=== PATIENT | male | born 1970 | race Caucasian/White ===

== ENCOUNTER 2022-08-08 09:56 | Emergency (ER) | payer SELFPAY ==
--- NOTE | ~2022-08-08 | XR_ITS ---
EXAMINATION: XR HAND, LEFT CLINICAL INFORMATION: Laceration and partial amputation COMPARISON: None TECHNIQUE: PA, lateral, and oblique views of the left hand. FINDINGS: Soft tissue laceration involving the distal aspect of the second finger with displaced fracture through the second middle phalanx. A few adjacent punctate densities may represent bone pieces or foreign bodies. There is also soft tissue injury involving the tip of the third finger with fracture of the tuft of the third distal phalanx. Some subcutaneous emphysema is noted within the third finger. XR/XR hand LT min 3V IMPRESSION: Soft tissue injuries of the second and third fingers with fractures of the second middle phalanx and third distal phalangeal aniket.
[2022-08-08 09:57] VITALS: BP 164/103; PULSE 140; RESP 20; TEMP 36.8; O2SAT 94; BMI 24.1
[2022-08-08] MEDS: 0.9 % Sodium Chloride 1,000 ML 999 ML IVCONT (10:14)
[2022-08-08] MEDS: Lidocaine HCl 1 % MPF 30 ML VIAL SUBCUT (10:14)
--- NOTE | 2022-08-08 10:19 | MHC.EDTECH ---
@[id number] called [facility] transfer line. Gave patient demographics and a call back number to the individual on the line. Told them the provider was ALLIE Goodrich. They stated they would call back.
--- NOTE | 2022-08-08 10:38 | MHC.EDTECH ---
@[id number] [facility] transfer line calls back. They request to speak to ALLIE Goodrich. Kisha takes the call right away.
[2022-08-08 10:41] VITALS: RESP 20
[2022-08-08] MEDS: ondansetron HCL 4 MG/2 ML VIAL IVPUSH (10:41)
[2022-08-08] MEDS: Morphine Sulfate 4 MG/ML CARTRIDGE IVPUSH (10:41)
[2022-08-08 10:53] LABS: MANUAL DIFF FLAG NO
[2022-08-08 10:54] LABS: Basophils Percent Auto 0.5 % (0-2); Eosinophils Absolute Auto 0.2 X10*3/uL (0.0-0.4); Eosinophils Percent Auto 2.9 % (0-4); Hematocrit 39.6 % (42.0-52.0); Hemoglobin 13.8 g/dl (14.0-18.0); Imm Gran Abs Auto 0.01 X10*3/uL (0.00-0.03); Imm Gran Pct Auto 0.2 % (0.0-0.4); Lymphocytes Absolute Auto 1.9 X10*3/uL (1.2-4.9); Lymphocytes Percent Auto 34.4 % (20-40); Mean Corpuscular HGB Conc 34.8 g/dl (31.0-36.0); Mean Corpuscular Hemoglobin 30.3 pg (27.0-33.0); Mean Platelet Volume 8.4 fL (9.4-12.4); Monocytes Absolute Auto 0.5 X10*3/uL (0.1-1.2); Monocytes Percent Auto 8.2 % (2-11); Neutrophils Percent Auto 53.8 % (45-73); Platelet Count 186 X10*3/uL (160-400); Red Blood Count 4.55 X10*6/uL (4.60-5.80); Red Cell Distribution Width 12.9 % (11.0-16.0); White Blood Count 5.5 X10*3/uL (4.8-10.8)
[2022-08-08 11:00] LABS: INTERNATIONAL NORM RATIO 1.1 (0.9-1.1); Prothrombin Time 12.1 SEC (10.0-13.1)
[2022-08-08] MEDS: cefTRIAXone sodium 2 GM in 0.9 % Sodium Chloride 50 ML IV (11:09)
[2022-08-08 11:34] LABS: Alanine Aminotransferase 10 U/L (0-40); Albumin Level 3.8 g/dL (3.5-5.0); Alkaline Phosphatase 64 U/L (39-117); Anion Gap 14 (12-20); Aspartate Amino Transferase 18 U/L (5-37); Bilirubin Total 0.8 mg/dL (0.0-1.0); Blood Urea Nitrogen 8 mg/dL (9-16); Calcium 8.4 mg/dL (8.4-10.2); Carbon Dioxide 23 mmol/L (22-29); Chloride 108 mmol/L (96-108); Creatinine Clr Calc Pharmacy 112.8; Estimated Glomerular Filt Rate > 60; Glucose Random 102 mg/dL (60-115); Magnesium 1.7 mg/dL (1.6-2.6); Sodium 141 mmol/L (135-145); Total Protein 5.9 g/dL (6.5-8.0)
[2022-08-08 12:26] VITALS: BP 99/54; PULSE 79; RESP 15; O2SAT 97
--- NOTE | 2022-08-08 13:23 | PC.NURSE ---
pressure dressing applied per pa order. no bleeding noted through dressing at this time.
--- NOTE | 2022-08-08 13:33 | ED_ITS ---
HPI - Wound/Laceration General Chief Complaint: Wound/Laceration Stated Complaint: cut finger off Time Seen by Provider: 08/08/22 10:01 Source: patient Mode of arrival: ambulatory Limitations: no limitations History of Present Illness HPI narrative: 52yoM presenting to the ER with complaints of complete amputation of the left middle finger distal aspect and partial amputation to the left index finger that occurred prior to arrival while he was outside trying to snow blow. He reports that the inspector final assembly conveyor line got jammed and he tried to fix it and this is how he sustained his injuries. Reports he is up-to-date on tetanus received 3-4 years ago he is certain about this. He denies any other symptoms complaints concerns or injuries at this time. Onset (ago): minute(s) (Prior to arrival) Extremity Location: left: hand (Index and middle finger left hand) Place: home (Outdoor) Patient tetanus UTD: Yes Context: accidental Associated symptoms: pain Treatments prior to arrival: bandage Related Data Previous Rx's Medication Instructions Recorded acetaminophen 500 mg tablet 1,000 mg PO QID PRN fever or pain 08/08/22 (Tylenol Extra Strength) #14 tabs ondansetron HCl 4 mg tablet 4 mg PO Q8H #14 tabs 08/08/22 oxycodone 5 mg tablet 5 mg PO Q6H PRN pain #14 tabs 08/08/22 Allergies Allergy/AdvReac Type Severity Reaction Status Date / Time No Known Allergies Allergy Verified 08/08/22 10:01 Review of Systems Review of Systems: Constitutional : No Fever, No Chills, Cardiovascular : No Chest Pain, No SOB Respiratory : No Dyspnea Gastrointestinal : No abdominal pain Musculoskeletal : No Joint Swelling Skin : positive finger amputation to left middle finger and partial to left index finger, No Foreign bodies, No rash, No surrounding erythema Neuro : No Weakness, No Numbness/tingling Psych : No SI/HI/thoughts of self injury Yes all other systems are reviewed and are negative PMFSH Past Medical History Attestation statement: The following information was validated with the patient. Source: old records reviewed and nursing notes reviewed Social History Social History Smoked in Last 30 Days: Yes Advance Directives: No Advance Directives Information Provided: No Physical Exam Vital Signs: Vital Signs: Last Vital Signs Temp 98.3 F 08/08/22 09:57 Pulse 79 08/08/22 12:26 Resp 15 08/08/22 12:26 BP 99/54 L 08/08/22 12:26 Pulse Ox 97 08/08/22 12:26 O2 Del Method 08/08/22 12:26 BMI result Body Mass Index 24.1 vital signs have been reviewed as normal and appeared to be correct. Blood pressure 164/140 Heart rate 140 Respiration rate normal. Temperature normal. Oxygen saturation normal. Appearance: Alert. Oriented X3. No acute distress. Head: Normal external exam. Normocephalic. Atraumatic. Eyes: PERRLA. EOMI. Conjunctiva and sclera normal. Eyelids normal. ENT: Pharynx normal. Uvula midline. Moist mucous membranes. Neck: Normal inspection. Neck supple. FROM. CVS: Normal heart rate and rhythm. Respiratory: No respiratory distress. Painless inspiration. Skin: Skin warm and dry. Normal skin color. Normal skin turgor. No rashes/lesions noted. To the left hand index finger patient has partial amputation with exposed bone noted to the distal aspect. To left hand middle finger patient has DIP amputation. see images below. Otherwise no additional lacerations or injuries noted. Extremities: Patient has pain with range of motion of the 2nd and 3rd digits of the left hand otherwise all other extremities exhibit normal range of motion nontender. Neuro: Oriented X 3. No motor deficit. No sensory deficit. Reflexes normal. Normal steady gait. No focal neuro deficits noted. Vascular: + radial pulses b/l. Normal cap refill. No cyanosis noted to upper extremity nails Course Course Course Narrative: 52yoM presenting to the ER with complaints of complete amputation of the left middle finger distal aspect and partial amputation to the left index finger that occurred prior to arrival while he was outside trying to snow blow. He reports that the inspector final assembly conveyor line got jammed and he tried to fix it and this is how he sustained his injuries. Reports he is up-to-date on tetanus received 3-4 years ago. Labs obtained patient mild anemia with an H&H of 13.8/39.6. BUN 8. Total protein 5.9. Otherwise all other labs are within normal limits X-ray reveals soft tissue injuries of the 2nd and 3rd fingers with fractures of the 2nd middle phalanx and 3rd distal phalangeal tuft. Therefore I discussed this case with Dr. Allen at [facility] and he reported that ?patient does not meet finger revascularization criteria or transfer at this time?. Therefore I discussed this case with Dr. Bernal who reported that the patient wound can be clean and closed and splinted and Dr. Baker can not complete amputation on Wednesday or he would admit in attempt amputation himself although do so Dr. Baker being a hand surgeon patient was more comfortable with the suturing the finger in place and following up on Wednesday with Dr. Baker. Therefore patient now status post partial amputation repair with simple running stitch and 2 simple interrupted stitches to the left hand index finger. He did have some bleeding to the left middle finger ther efore three figure of 8 absorbable sutures were placed. Patient tolerated procedure well. No acute complications. Tetanus was up-to-date therefore does not need to be updated. Patient received IV Rocephin. He will be discharged with p.o. antibiotics Keflex along with Tylenol and oxycodone. I also placed Surgicel over the left middle finger. Along with finger splint with bulky dressings. No active bleeding after repairs were done and dressings. Therefore patient will be discharged with instructions to stay NPO after midnight on Wednesday08/09/2022 for possible surgery with Dr. Baker on Wednesday08/10/2022. And to return if any new or worsening symptoms. Patient understands agrees with t his plan. Brother also at bedside understand agrees with plan. Medications Administered Discontinued Medications Generic Name Dose Route Start Last Admin Trade Name Freq PRN Reason Stop Dose Admin Albuterol Sulfate 2 puff 08/08/22 10:46 08/08/22 11:48 Albuterol Sulfate 90 Mcg 8 Gm Inhaler INHALE 08/08/22 10:47 Not Given ONCE ONE Sodium Chloride 1,000 mls @ 999 mls/hr 08/08/22 10:15 08/08/22 11:20 Ns IVCONT 08/08/22 11:15 Infused .Q1H1M GURDEEP Infusion Ceftriaxone Sodium 2 gm/ 50 mls @ 100 mls/hr 08/08/22 10:37 08/08/22 11:38 Sodium Chloride IV 08/08/22 11:06 Infused ONCE ONE Infusion Lidocaine HCl 30 ml 08/08/22 10:01 08/08/22 10:14 Lidocaine Hcl 1 % Mpf 30 Ml Vial SUBCUT 08/08/22 10:02 30 ml ONCE ONE Administration Protocol Morphine Sulfate 4 mg 08/08/22 10:35 08/08/22 10:41 Morphine Sulfate 4 Mg/Ml Cartridge IVPUSH 08/08/22 10:36 4 mg ONCE ONE Administration Protocol Ondansetron HCl 4 mg 08/08/22 10:35 08/08/22 10:41 Ondansetron Hcl 4 Mg/2 Ml Vial IVPUSH 08/08/22 10:36 4 mg ONCE ONE Administration Medical Decision Making Admission/Observation Consideration of admission/observation: Escalation of care including admission /observation considered (We did consider admission although with discharge the patient he will follow-up with Dr. Baker on Wednesday for further evaluation treatment) Consult Healthcare Provider Management of the patient was discussed with: Account Underwriter (Dr. Bernal the general orthopedic surgeon and Daria Dobbins PA-C) Lab Data MDM Lab Attestation statement: I reviewed the patient's lab results. 08/08/22 10:49 08/08/22 10:49 Labs: Lab Results 08/08/22 08/08/22 08/08/22 Range/Units 10:49 10:49 10:49 WBC 5.5 (4.8-10.8) X10*3/uL RBC 4.55 L (4.60-5.80) X10*6/uL Hgb 13.8 L (14.0-18.0) g/dl Hct 39.6 L (42.0-52.0) % MCV 87.0 (80.0-98.0) fL MCH 30.3 (27.0-33.0) pg MCHC 34.8 (31.0-36.0) g/dl RDW 12.9 (11.0-16.0) % Plt Count 186 (160-400) X10*3/uL MPV 8.4 L (9.4-12.4) fL Immature Gran % (Auto) 0.2 (0.0-0.4) % Neut % (Auto) 53.8 (45-73) % Lymph % (Auto) 34.4 (20-40) % Foard % (Auto) 8.2 (2-11) % Eos % (Auto) 2.9 (0-4) % Baso % (Auto) 0.5 (0-2) % Lymph # (Auto) 1.9 (1.2-4.9) X10*3/uL Foard # (Auto) 0.5 (0.1-1.2) X10*3/uL Eos # (Auto) 0.2 (0.0-0.4) X10*3/uL Baso # (Auto) 0.0 (0.0-0.2) X10*3/uL Abs Immat Gran (auto) 0.01 (0.00-0.03) X10*3/uL Absolute Neuts (auto) 3.0 (2.0-8.3) x10*3/uL Absolute Nucleated RBC 0.000 (0.0-0.012) X10*3/uL Nucleated RBC % (auto) 0.0 (0.0-0.2) /100WBC PT 12.1 (10.0-13.1) SEC INR 1.1 (0.9-1.1) Sodium 141 (135-145) mmol/L Potassium 4.0 (3.3-5.1) mmol/L Chloride 108 (96-108) mmol/L Carbon Dioxide 23 (22-29) mmol/L Anion Gap 14 (12-20) BUN 8 L (9-16) mg/dL Creatinine 0.85 (0.5-1.4) mg/dL Estim Creat Clear Calc 112.8 Estimated GFR > 60 Random Glucose 102 (60-115) mg/dL Calcium 8.4 (8.4-10.2) mg/dL Magnesium 1.7 (1.6-2.6) mg/dL Total Bilirubin 0.8 (0.0-1.0) mg/dL AST 18 (5-37) U/L ALT 10 (0-40) U/L Alkaline Phosphatase 64 (39-117) U/L Total Protein 5.9 L (6.5-8.0) g/dL Albumin 3.8 (3.5-5.0) g/dL Independent Interpretation I performed an independent interpretation of an: Plain X-Ray (X-ray reviewed by myself and I am agreeable with radiologist report discussed with patient he u stephen results) Radiology Impression Discussion of test interpretation with radiology: I have reviewed the radiologist's reading. Radiologist Impression: EXAMINATION: XR HAND, LEFT CLINICAL INFORMATION: Laceration and partial amputation? COMPARISON: None? TECHNIQUE: PA, lateral, and oblique views of the left hand. FINDINGS: Soft tissue laceration involving the distal aspect of the second finger with displaced fracture through the second middle phalanx. A few adjacent punctate densities may represent bone pieces or foreign bodies. There is also soft tissue injury involving the tip of the third finger with fracture of the tuft of the third distal phalanx. Some subcutaneous emphysema is noted within the third finger.? XR/XR hand LT min 3V IMPRESSION: Soft tissue injuries of the second and third fingers with fractures of the second middle phalanx and third distal phalangeal aniket. Independent Historian Clinical information obtained from an independent historian. History obtained from or confirmed by: Other (Patient and brother) Prescription Management I considered prescription management with: Pain Medication and Antibiotic Patient was given pain medications and antibiotics due to open fracture Procedures Laceration Laceration 1: Site: hand (Index finger) Side (If applicable): left Description: irregular (Partial amputation) and contaminated Depth: involves muscle layer, involves tendon and [id number] Local Anesthetic: lidocaine 1% Amount of anesthesia used (mL): 15 Pre-repair: wound explored, irrigated extensively and wound margins revised Skin layer closed with: nylon Size (cm): 4-0 (two simple interrupted stitches and 1 running stitch placed) Technique: simple, interrupted and running Subcutaneous layer closed with: vicryl Laceration 2: Site: hand (Middle finger) Side (If applicable): left Description: other (DIP amputated) Depth: involves muscle layer, involves tendon and wlbnrdw-wdb-evchuyt Local Anesthetic: lidocaine 1% Amount of anesthesia used (mL): 15 Pre-repair: wound explored and irrigated extensively Size (cm): 4-0 and other (Absorbable sutures placed 3) Technique: simple, interrupted Critical Care Time Critical Care Time Critical Care Time: Yes Total Critical Care Time: 60 Attestation: I personally attest to this time spent taking care of the patient Discharge Plan Discharge Clinical Impression: Amputation of finger tip, Partial traumatic amputation of finger through phalanx Patient Disposition: Home, Self-Care Instructions: Finger Amputation (ED), Skin Avulsion (ED) Prescriptions: New acetaminophen [Tylenol Extra Strength] 500 mg tablet 1,000 mg PO QID PRN (Reason: fever or pain) Qty: 14 0RF oxycodone 5 mg tablet 5 mg PO Q6H PRN (Reason: pain) Qty: 14 0RF Rx Instructions: Partial Fill upon patient request. ondansetron HCl 4 mg tablet 4 mg PO Q8H Qty: 14 0RF Referrals: Catia Baker MD [Physician] - (You need to follow-up by Wednesday with Dr. Baker the hand surgeon. Please do not eat or drink after midnight tomorrow 08/09/2022 for possible hand surgery/amputation Wednesday08/10/2022) Interventions: ED Discharge Assessment Last Done: 08/08/22 14:05 Discharge Date/Time: 08/08/22 14:05
== END 2022-08-08 14:05 | disposition home or self-care (01) ==
PROVIDERS: Physician Assistant Medical; Emergency Provider Emergency Medicine
DX: S68.121A Partial traumatic metacarpophalangeal amputation of left index finger, initial encounter (principal); S68.113A Complete traumatic metacarpophalangeal amputation of left middle finger, initial encounter; S62.621B Displaced fracture of middle phalanx of left index finger, initial encounter for open fracture; S62.633B Displaced fracture of distal phalanx of left middle finger, initial encounter for open fracture; W31.89XA Contact with other specified machinery, initial encounter; Y93.29 Activity, other involving ice and snow; Y92.014 Private driveway to single-family (private) house as the place of occurrence of the external cause; Y99.9 Unspecified external cause status
CPT/HCPCS: 12041; 36415; 73130; 80053; 83735; 85025; 85610; 96361; 96365; 96375; 99284; J0696; J2270; J2405

== ENCOUNTER 2022-08-10 11:25 | Day surgery (SDC) | payer SELFPAY ==
[2022-08-10] VITALS (7 sets, daily range): BP systolic 150–175; BP diastolic 86–111; PULSE 73–88; RESP 16–18; TEMP 36.2–36.9; O2SAT 95–100; BMI 23.0; BMI 24.1
--- NOTE | 2022-08-10 13:29 | P.HPOP_ITS ---
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 On 08/08/2022 the patient got his left hand caught in his flue blower sustaining significant injuries to his left index and middle fingers. He was seen in the emergency department where the wound was washed out, the fracture reapproximated and the wounds sutured closed as they were able. It sounds like he received IV antibiotics in the emergency department but was not placed on oral antibiotics. He complains of some pain in the left index and middle fingers. He says his thumb ring and small fingers feel fine. He says he has some mild soreness in the metacarpal area of the hand and wrist but no significant discomfort. TOLU Social History Social History Patient Tobacco Use Status: Current everyday Tobacco user Tobacco use type: Cigarette Cigarette Packs Per Day: 0.5 Cigarettes Per Day: 10.0 Years Smoked: 20 Use of substances other than those prescribed or required for medical reasons: Yes Are you DNR?: No Advance Directives: No Advance Directives Information Provided: Yes Meds Allergies Allergy/AdvReac Type Severity Reaction Status Date / Time No Known Allergies Allergy Verified 08/08/22 10:01 Physical Exam Vital Signs: Vital Signs: Last Vital Signs Temp 98.2 F 08/10/22 13:08 Pulse 84 08/10/22 13:08 Resp 18 08/10/22 13:08 BP 151/96 H 08/10/22 13:08 Pulse Ox 95 08/10/22 13:08 O2 Del Method 08/10/22 13:08 BMI result Body Mass Index 24.1 Const: General: cooperative, healthy appearing and no acute distress Orientation/consciousness: oriented to person and oriented to place HEENT: Head: Yes normocephalic and Yes atraumatic Eyes: EOM: EOMs intact bilaterally Resp: Effort & Inspection: normal respiratory effort and able to speak in complete sentences Cardio: Jugular venous distension: no JVD Skin: General skin exam: turgor normal Rashes: no rashes Neuro: General: oriented to person and oriented to place Extrem: Other: Evaluation of left Upper Extremity: He has a distal phalanx level tip amputation of the left middle finger. Regarding his left index finger he has a circumferential laceration that is obliquely oriented with a laceration being more proximal dorsally and more distally volarly all at the middle phalanx level. He is already exhibiting some evidence of tip necrosis of at least the nail level and distally. He is beginning what appears to be mummification of the tip with blackening and loss of turgor. He says he has some but not normal sensation to the pad of the finger. No visible bleeding. Radiographs: Three views of the left hand reviewed by me today and show an amputation through the distal phalanx level of the left middle finger. He also has a transverse fracture through the middle phalanx of the left index finger with displacement. Psych: Appearance: grossly normal Affect: normal affect Attitude: cooperative Results Labs Labs: All other labs normal. Assessment and Plan (1) Finger amputation, traumatic: Status: Acute (2) Open fracture of middle phalanx of left index finger: Status: Acute Plan Assessment and plan: 1. Left middle finger distal phalanx level traumatic amputation and nail bed injury 2. Left index finger open middle phalanx level near amputation, with evidence of early necrosis distal to the laceration and fracture site Both of these injuries are status post injury with a flue blower Date of injury 08/08/2022 He was seen in the emergency department where his wounds were irrigated, and loosely closed as able. I educated the patient about these injuries. I am recommending revision amputation of the left middle finger tip injury. After a long discussion with the patient, I do not believe that it is likely that the left index finger tip is viable. We will again reassess in the operating room for any evidence of bleeding or other evidence that this finger might be viable. If it is, then week will attempt an open reduction internal fixation with K-wires at the request of the patient. However, if he does not appear to have any further evidence of I a bili of the digit when we are in the operating room, he understands and agrees that we will then proceed with a revision amputation of this left index finger at this time. The risks and benefits of operative treatment were discussed with the patient and the patient wishes to proceed with surgery. These risks include, but are not limited to risk of damage to blood vessels, nerves, tendons, infection, recurrence, incomplete relief of preoperative symptoms, persistent pain, possible need for further surgery and the risks associated with regional blocks and anesthesia. The plan is to take the patient to the operating room today for the following procedures: 1. Left middle finger revision amputation 2. Left index finger revision amputation versus open reduction internal fixation 3. I and D of open fractures of both the left middle and left index fingers. 4. Left middle finger excision of sterile and germinal nail matrices. All of the preoperative paperwork including the consent was filled out today and signed. All the patient's questions were answered. Time Spent With Patient Time: Total time managing care of this patient today ____ minutes. Quality Stroke Does the patient have a stroke diagnosis?: No VTE Prior VTE?: No VTE Risk Level:: Medical - low VTE Device Contraindication: Treatment Not Indicated VTE Drug Contraindication: Treatment Not Indicated Procedures Date of Service Date of Service: 08/10/22
[2022-08-10] MEDS: Lactated Ringers 1,000 ML 50 ML IVCONT (13:32)
--- NOTE | 2022-08-10 14:03 | HO.ANESPROP2 ---
HPI - Anesthesia Eval Consult details Narrative: closure of finger amputation PMFSH Active Problems Active Problems: All Active Problems (Updated 08/10/22 @ 13:31 by Catia Baker MD) Open fracture of middle phalanx of left index finger (Acute) Finger amputation, traumatic (Acute) Family History Family history of problems with anesthesia: No Surgical History History of Problems with Anesthesia: No Social History Social History Patient Tobacco Use Status: Current everyday Tobacco user Tobacco use type: Cigarette Cigarette Packs Per Day: 0.5 Cigarettes Per Day: 10.0 Years Smoked: 20 Use of substances other than those prescribed or required for medical reasons: Yes Are you DNR?: No Advance Directives: No Advance Directives Information Provided: Yes Meds Allergies Allergy/AdvReac Type Severity Reaction Status Date / Time No Known Allergies Allergy Verified 08/08/22 10:01 Active Medications: Current Medications Lactated Ringer's (Lr) 1,000 mls @ 50 mls/hr IVCONT .Q20H GURDEEP Last Admin: 08/10/22 13:32 Dose: 50 mls/hr Exam Exam Date and Time: August 10, 2022 1403 Height,Weight and Vital Signs: Height 6 ft Weight 80.739 kg Last Vital Signs Temp 98.2 F 08/10/22 13:08 Pulse 84 08/10/22 13:08 Resp 18 08/10/22 13:08 BP 151/96 H 08/10/22 13:08 Pulse Ox 95 08/10/22 13:08 O2 Del Method 08/10/22 13:08 Airway Mallampati Class: II TM Dist: >3cm Neck ROM: Full Heart: rrr Assessment and Plan Assessment Anesthesia Assessment: Anesthesia Plan Discussed and Chart Reviewed Final Anesthetic Review Family History of Problems with Anesthesia: No History of Problems with Anesthesia: No NPO: Yes ASA Class: II Final Preanesthetic Review: No Changes in Pt Med Stat, Meds/Allgs Chart Reviewed, Consent Obtained/Reviewed and Anes Risks/Benef Reviewed Patient Risk: Intermediate Procedure Risk: Low Assessment/Block/Sedation in SS: Assess/Block/Sedation-SS Anesthetic Plan Anesthetic Plan: GA Disposition: Standard PACU
--- NOTE | 2022-08-10 14:27 | MHC.SHP ---
Pre-Procedural Eval Section A Date of Service: 08/10/22 The patient is an INPATIENT: No Changes since office visit: No Cold of Flu in the past 2 weeks, No New Medical Problems, No Changes in Medication and No Patient answered all questions The History & Physical has been completed within 30 days and I have reviewed it.: Yes Section B Chief Complaint: Partial traumatic transphalangeal amputation of le Allergies: Allergies Allergy/AdvReac Type Severity Reaction Status Date / Time No Known Allergies Allergy Verified 08/08/22 10:01 Plan I have reviewed the history and physical and performed a pertinent physical examination on my patient. No changes have occurred unless specified. Patient was seen and evaluated by me in preop hold. Please see my H and P note for details. Time Spent With Patient Time: Total time managing care of this patient today ____ minutes.
--- NOTE | 2022-08-10 14:29 | P.OP_ITS ---
Operative Note Operative Note Date of Service: 08/10/22 Narrative: Operative Note Narrative: Preop diagnosis: 1. Left middle finger distal phalanx level amputation 2. Left index finger open middle phalanx fracture 3. Left index finger circumferential laceration with near amputation and evidence of fingertip necrosis Postop diagnosis: Same Procedure: 1.? ? Left middle finger distal phalanx level revision Amputation 2. Left middle finger open fracture I and D 3. Left middle finger excision of nail apparatus 4. Left index finger middle phalanx level revision amputation 5. Left index finger open fracture I and D Surgeon: Catia Baker MD Anesthesia: General Anesthesia Findings: Regarding the left index finger he had early evidence of tip necrosis and loss of turgor. To the operating room once this sutures were removed I found that the only intact attachment was the FDP tendon. This digit was not viable distal to the level of injury. Regarding the left middle finger, the traumatic amputation was just distal to the eponychial fold, necessitating re moval of the nail apparatus. Implants: None Tourniquet time: 33 minutes EBL: 5.0 ml Specimen: Left index finger tip sent for pathology Drains: None Complications: None Disposition: Brought to the recovery room in stable condition Plan: Patient to begin oral Augmentin times 10 days. 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 The risks and benefits of operative treatment, including but not limited to risk of damage to blood vessels, nerves, tendons, infection, recurrence, persistent pain or numbness, incomplete r esolution of preoperative symptoms, or need for further surgery were discussed with the patient and they wished to proceed with surgery. We had a long discussion about the viability of the left index finger. He understands that the left index finger is not appearing to be viable. Per our discussion I will again look to assess viability in the operating room, but he understands that it is very likely that he will need a revision amputation today for the left index finger. He wishes for me to proceed with whatever I feel is best. Procedure: Once consent was obtained patient was brought back to the operating suite and placed in the operating table in a supine position. . Perioperative antibiotics and anesthesia was administered by the anesthesia team. A tourniquet was applied to the proximal aspect of the left upper extremity and the limb was prepped and draped in a standard surgical fashion. The limb was elevated exsanguinated with Esmarch bandage and the tourniquet inflated to 250 mm of mercury for a total tourniquet time of 33 minutes. Regarding the left middle finger: the amputation site was debrided of nonviable tissue. The end of the bone was debrided using a curette where necessary and also shortened using either rongeur or a bone biter as appropriate. The sharp edges were removed from the and of the bone using a small rongeur. The ends of the digital nerves were shortened as indicated. The wound was then copiously irrigated with normal saline. Our attention was turned to the nail bed. Because of the severity of this injury it was felt that the nail apparatus to would be best removed. The sterile and germinal matrices were carefully excised using a 15. Blade and then a rongeur. The skin edges at the paronychial fold and soft tissue injury were freshened using a 15. Blade or iris scissors removing only approximately 1 mm to facilitate healing at the skin edges. The wound was again copiously irrigated with normal saline. The skin edges were then reapproximated with some 4-0 Prolene suture material. My attention was then turned to the left index finger. Again were seeing early signs of fingertip necrosis with loss of turgor, and blackening of the tip of the finger. Upon evaluating this injury after removal of the sutures I found that the only intact structure between the index finger and the tip distal to the fracture was the FDP tendon. All other structures in the zone of injury were lacerated at the fracture site. The digit was not viable distal to the zone of injury. The FDP tendon was cut using a 15. Blade, and a revision amputation was performed. The end of the bone was debrided using a curette were necessary and also shortened using either both a bone biter and a rongeur to facilitate wound closure. The ends of the digital nerves were identified and shortened as indicated. Wound was again irrigated with normal saline and the skin edges reapproximated using some 4-0 Prolene suture material. The tourniquet had been deflated prior to closure and hemostasis obtained with a brief period of local pressure and bipolar electrocautery.. A digital block was performed using some 0.5% plain ropivacaine for postop pain control and a sterile dressing was applied. The patient appears to have tolerated the procedure well and with no complications. .
== END 2022-08-10 18:12 | disposition home or self-care (01) ==
PROVIDERS: PCP Orthopaedic Surgery; Visit Provider Orthopaedic Surgery
PROC: (CPT 26236; principal; 2022-08-10 13:00)
DX: S68.623A Partial traumatic transphalangeal amputation of left middle finger, initial encounter (principal); S62.621B Displaced fracture of middle phalanx of left index finger, initial encounter for open fracture; I96 Gangrene, not elsewhere classified; W29.8XXA Contact with other powered hand tools and household machinery, initial encounter; Y93.29 Activity, other involving ice and snow; Y92.9 Unspecified place or not applicable; F17.210 Nicotine dependence, cigarettes, uncomplicated
CPT/HCPCS: 26236; 26951; 88305; 88311; J0690; J1100; J1170; J2250; J2405; J2795; J3010

== ENCOUNTER 2022-08-18 09:15 | Outpatient (REF) | payer OTHER, SELFPAY | END 2022-08-18 09:16 | disposition home or self-care (01) | LOC: HO.HOSX 09:15 | PROVIDERS: Visit Provider Orthopaedic Surgery | DX: Z13.89 Encounter for screening for other disorder (principal) ==

== ENCOUNTER 2022-08-19 09:33 | Outpatient (REF) | payer SELFPAY ==
--- NOTE | ~2022-08-19 | XR_ITS ---
EXAMINATION: XR HAND, LEFT CLINICAL INFORMATION: Pain in left hand. COMPARISON: None available. TECHNIQUE: PA, lateral, and oblique views of the left hand. FINDINGS: The bones and soft tissues are normal. No fracture. Alignment is anatomic. Joint spaces are maintained. No erosions or soft tissue calcifications. XR/XR hand LT min 3V IMPRESSION: There is partial amputation of 2nd and 3rd digit as described above. No other bony abnormality seen.
== END 2022-08-19 09:34 | disposition home or self-care (01) ==
LOC: HO.HOSX 09:33
PROVIDERS: Visit Provider Orthopaedic Surgery
DX: S68.121D Partial traumatic metacarpophalangeal amputation of left index finger, subsequent encounter (principal); S68.123D Partial traumatic metacarpophalangeal amputation of left middle finger, subsequent encounter; Y93.29 Activity, other involving ice and snow; Z79.2 Long term (current) use of antibiotics
CPT/HCPCS: 73130

== ENCOUNTER → 2022-09-02 12:12 | Outpatient (BNVA) | payer OTHER, SELFPAY | PROVIDERS: Visit Provider Orthopaedic Surgery | DX: Z13.89 Encounter for screening for other disorder (principal) ==

== ENCOUNTER → 2022-10-13 15:28 | Outpatient (BNVA) | payer OTHER, SELFPAY | PROVIDERS: Visit Provider Orthopaedic Surgery ==